=== PATIENT | male | born 1980 | race Caucasian/White ===

== ENCOUNTER 2017-03-30 15:49 | Inpatient (IN) | payer BC ==
[~2017-03-30] VITALS: Ht 170.2 cm; Wt 83.1 kg
[2017-03-30 16:12] LABS: EOSINOPHIL (%) 0.3 % (0-5); EOSINOPHIL COUNT 0.1 K/uL (0-0.3); HEMATOCRIT 41.2 % (38.0-50.0); IMMATURE GRANULOCYTE (%) 1.2 % (0.0-0.7); IMMATURE GRANULOCYTE COUNT 0.2 K/uL; INSTRUMENT ABS NEUTROPHIL CT 12.5 K/uL; LYMPHOCYTE COUNT 1.9 K/uL (1.0-2.8); MCH 29.9 PG (29.0-34.0); MCHC 35.7 G/DL (30.0-36.0); MCV 83.9 FL (86-99); MEAN PLAT.VOLUME 9.2 uM^3 (9.0-12.4); MONOCYTE COUNT 0.9 K/uL (0-0.8); NEUTROPHIL (%) 80.3 % (45-76); NEUTROPHIL COUNT 12.5 K/uL (1.8-6.4); PLATELET COUNT 273 K/uL (156-360); RBC DIS.WIDTH-CV 11.8 % (11.8-14.6); RBC DIS.WIDTH-SD 35.8 % (39-53); RED BLOOD COUNT 4.91 M/uL (4.00-5.50); WHITE BLOOD COUNT 15.6 K/uL (4.1-10.2)
[2017-03-30 16:22] LABS: AMYLASE 53 IU/L (1-118); CHLORIDE 107 mEq/L (99-109); POTASSIUM 3.3 mEq/L (3.7-5.4); SODIUM 142 mEq/L (136-147)
[2017-03-30 16:24] LABS: GLUCOSE 98 mg/dL (70-99)
[2017-03-30 16:25] LABS: ANION GAP 12 MEQ/L (2-14)
[2017-03-30 16:27] LABS: SERUM ETHYL ALCOHOL < 10 mg/dL
[2017-03-30 16:29] LABS: UREA NITROGEN (BUN) 15 mg/dL (9-23)
[2017-03-30 16:31] LABS: GFR ESTIMATE (CALCULATED) > 59 mL/min/; LIPASE 25 U/L (1.0-51.0)
[2017-03-30 21:34] LABS: ADD MIUA? YES; BILIRUBIN NEGATIVE; BLOOD MODERATE; COLOR YELLOW ((YELLOW)); GLUCOSE (STRIP) NEGATIVE; KETONES 5; LEUKOCYTES NEGATIVE; NITRITE NEGATIVE; PROTEIN (STRIP) NEGATIVE; UROBILINOGEN 0.2 MG/DL (0.2-1.0)
[2017-03-30 21:35] VITALS: BP 125/74
[2017-03-30 21:37] LABS: BACTERIA NONE SEEN /HPF; EPITHELIAL CELLS NONE SEEN /HPF; HYALINE CASTS 0-5 /LPF; MUCUS TRACE /LPF; RED BLOOD CELLS 0-5 /HPF (0-5); UCUL ADDED? NO; WHITE BLOOD CELLS 0-5 /HPF (0-5)
[2017-03-30 21:44] LABS: AMPHETAMINE NEGATIVE (500 ng/mL); BARBITURATES NEGATIVE (200 ng/mL); BENZODIAZEPINES NEGATIVE (150 ng/mL); COCAINE NEGATIVE (150 ng/mL); INTERNAL CONTROLS VALID? YES; METHADONE NEGATIVE (200 ng/mL); METHAMPHETAMINE NEGATIVE (500 ng/mL); OPIATES (MORPHINE) PRESUMPTIVE POSITIVE (100 ng/mL); OXYCODONE NEGATIVE (100 ng/mL); PHENCYCLIDINE NEGATIVE (25 ng/mL); PROPOXYPHENE NEGATIVE (300 ng/mL); THC CANNABINOIDS NEGATIVE (50 ng/mL); TRICYCLIC ANTIDEPRESSANTS NEGATIVE (300 ng/mL)
[2017-03-30 21:45] LABS: ADD MEDTOX COMMENT Y
[2017-03-30 21:54] LABS: SPECIFIC GRAVITY 1.064 (1.000-1.030)
[2017-03-30 23:18] VITALS: BP 127/72
[2017-03-31 03:28] VITALS: BP 133/76
[2017-03-31 05:02] LABS: HEMATOCRIT 35.4 % (38.0-50.0); MCH 29.8 PG (29.0-34.0); MCHC 35.3 G/DL (30.0-36.0); MCV 84.5 FL (86-99); MEAN PLAT.VOLUME 9.6 uM^3 (9.0-12.4); PLATELET COUNT 225 K/uL (156-360); RBC DIS.WIDTH-CV 12.1 % (11.8-14.6); RBC DIS.WIDTH-SD 36.7 % (39-53); RED BLOOD COUNT 4.19 M/uL (4.00-5.50); WHITE BLOOD COUNT 8.2 K/uL (4.1-10.2)
[2017-03-31 05:05] LABS: CHLORIDE 105 mEq/L (99-109); POTASSIUM 3.7 mEq/L (3.7-5.4); SODIUM 139 mEq/L (136-147)
[2017-03-31 05:07] LABS: GLUCOSE 118 mg/dL (70-99)
[2017-03-31 05:08] LABS: ANION GAP 9 MEQ/L (2-14)
[2017-03-31 05:09] LABS: TOTAL BILIRUBIN 0.9 mg/dL (0.0-1.0)
[2017-03-31 05:11] LABS: ALKALINE PHOSPHATASE 97 IU/L (3-129); GFR ESTIMATE (CALCULATED) > 59 mL/min/
[2017-03-31 05:12] LABS: UREA NITROGEN (BUN) 11 mg/dL (9-23)
[2017-03-31 08:10] VITALS: BP 137/79
[2017-03-31 11:55] VITALS: BP 134/80
[2017-03-31 16:40] VITALS: BP 148/88
[2017-03-31 20:05] VITALS: BP 139/81
[2017-03-31 23:41] VITALS: BP 136/87
[2017-04-01 07:16] LABS: HEMATOCRIT 37.2 % (38.0-50.0); MCH 29.5 PG (29.0-34.0); MCHC 34.4 G/DL (30.0-36.0); MCV 85.7 FL (86-99); MEAN PLAT.VOLUME 9.6 uM^3 (9.0-12.4); PLATELET COUNT 201 K/uL (156-360); RBC DIS.WIDTH-CV 11.9 % (11.8-14.6); RBC DIS.WIDTH-SD 37.8 % (39-53); RED BLOOD COUNT 4.34 M/uL (4.00-5.50)
[2017-04-01 07:46] LABS: ANION GAP 9 MEQ/L (2-14); CHLORIDE 104 MEQ/L (99-109); GFR ESTIMATE (CALCULATED) > 59 mL/min/; GLUCOSE 108 mg/dL (70-99); POTASSIUM 4.1 MEQ/L (3.7-5.4); SAMPLE HEMOLYSIS CHECK 0; SAMPLE ICTERIC CHECK 0; SAMPLE LIPEMIA CHECK 0; SODIUM 140 MEQ/L (136-147); UREA NITROGEN (BUN) 6 mg/dL (9-23)
[2017-04-01 08:07] VITALS: BP 136/71
[2017-04-01 15:42] VITALS: BP 123/87
[2017-04-01] MEDS ORDERED: MOTRIN600 MG PO (21:08)
[2017-04-01] MEDS ORDERED: ENDOCET 5-3251 EACH PO (21:08)
[2017-04-01] MEDS ORDERED: DOCUSATE SODIU100 MG PO (21:08)
[2017-04-01] MEDS ORDERED: METAXALONE800 MG PO (21:08)
[2017-04-01 23:47] VITALS: BP 123/75
[2017-04-02 08:25] VITALS: BP 145/66
== END 2017-04-02 09:56 | disposition home or self-care (01) | DRG 552 ==
LOC: TRA 15:49 → 3EAST 19:47 → EDOF 19:47 → ENRESERV 19:50 → 3EAST 21:22
PROVIDERS: Emergency Medicine; Thoracic Surgery (Cardiothoracic Vascular Surgery)
DX: S22.080A Wedge compression fracture of T11-T12 vertebra, initial encounter for closed fracture (principal); S82.52XA Displaced fracture of medial malleolus of left tibia, initial encounter for closed fracture; E87.6 Hypokalemia; R16.0 Hepatomegaly, not elsewhere classified; W14.XXXA Fall from tree, initial encounter; W17.89XA Other fall from one level to another, initial encounter; Z68.28 Body mass index [BMI] 28.0-28.9, adult; Z82.49 Family history of ischemic heart disease and other diseases of the circulatory system
CPT/HCPCS: 71010; 72128; 72132; 73590; 73600; 73630; 74177; 80048; 80053; 81003; 82150; 83690; 84999; 85025; 85027; 86850; 86900; 86901; 99281; 99285; G0480; J1644; J1885; J2270; J2405; J7120